=== PATIENT | female | born 1960 | race Caucasian/White ===

== ENCOUNTER 2019-11-13 09:59 | Day surgery (SDC) | payer OTHER ==
[2019-11-10 17:26] VITALS: BMI 20.5
[2019-11-13 10:35] VITALS: TEMP 98.2
[2019-11-13 12:06] VITALS: BP 120/74; PULSE 73
--- NOTE | 2019-11-14 16:46 | PATH ---
Surgical Pathology Report Patient Name: ARMAND WANG [facility]. Rec. #: [id number] /Age/Gender: 1960 (Age: 59) / F Account: [id number] Location: [facility]-ENDOSCOPY Taken: 11/13/2019 Received: 11/13/2019 Reported: 11/14/2019 Physicians: TRAN RODRIGUEZ Specimen(s) Received A: CECUM B: ASCENDING COLON C: SIGMOID D: RECTUM Clinical History Diarrhea Postoperative diagnosis: Same Final Diagnosis A. CECUM, BIOPSY: COLONIC MUCOSA WITH MILD ACUTE INFLAMMATION OF LAMINA PROPRIA, ACUTE CRYPTITIS, AND REACTIVE LYMPHOID AGGREGATE. NO SIGNIFICANT CRYPT ARCHITECTURAL DISTORTION IDENTIFIED. B. ASCENDING COLON, BIOPSY: COLONIC MUCOSA WITH MILD ACUTE INFLAMMATION OF THE LAMINA PROPRIA AND ACUTE CRYPTITIS. NO SIGNIFICANT CRYPT ARCHITECTURAL DISTORTION IDENTIFIED. C. SIGMOID, BIOPSY: COLONIC MUCOSA WITH MILDLY INCREASED CHRONIC INFLAMMATORY CELLS IN THE LAMINA PROPRIA. NO ACUTE INFLAMMATION PRESENT. D. RECTUM, BIOPSY: COLONIC MUCOSA WITH FOCAL REACTIVE LYMPHOID AGGREGATE. NO ACUTE INFLAMMATION PRESENT. Electronically Signed Nikki Rogel M.D. Gross Description A. Received in formalin, labeled "biopsy cecum" are 2 andujar, irregular portions of soft tissue measuring 0.3 and 0.5 cm. in greatest dimension. The specimens are submitted in toto in one cassette. B. Received in formalin, labeled "biopsy ascending colon" are 2 andujar, irregular portions of soft tissue averaging 0.6 cm. in greatest dimension. The specimens are submitted in toto in one cassette. C. Received in formalin, labeled "biopsy sigmoid" are 2 andujar, irregular portions of soft tissue measuring 0.3 and 0.6 cm. in greatest dimension. The specimens are submitted in toto in one cassette. D. Received in formalin, labeled "biopsy rectum" are 2 andujar, irregular portions of soft tissue measuring 0.1 and 0.5 cm. in greatest dimension. The specimens are submitted in toto in one cassette. 11/13/201911/13/2019
== END 2019-11-13 12:36 | disposition home or self-care (01) ==
LOC: JASU-ENDO 09:59
PROVIDERS: ATTEND Internal Medicine Gastroenterology
PROC: 0DBN8ZX Excision of Sigmoid Colon, Via Natural or Artificial Opening Endoscopic, Diagnostic (ICD-10-PCS; 2019-11-13)
PROC: 0DBP8ZX Excision of Rectum, Via Natural or Artificial Opening Endoscopic, Diagnostic (ICD-10-PCS; 2019-11-13)
PROC: 0DBH8ZX Excision of Cecum, Via Natural or Artificial Opening Endoscopic, Diagnostic (ICD-10-PCS; 2019-11-13)
PROC: 0DBK8ZX Excision of Ascending Colon, Via Natural or Artificial Opening Endoscopic, Diagnostic (ICD-10-PCS; principal; 2019-11-13 10:00)
DX: K62.89 Other specified diseases of anus and rectum (principal); K64.8 Other hemorrhoids; K63.89 Other specified diseases of intestine
CPT/HCPCS: 88305-TC